=== PATIENT | female | born 1930 | race Caucasian/White ===

== ENCOUNTER 2016-05-25 16:35 | Emergency (ER) | payer MEDICARE, BC ==
[2016-05-25] MEDS ORDERED: LIDOCAINE HCL 20 ML VIAL ONE (19:08)
--- NOTE | 2016-05-25 20:09 | ERNOTE ---
Medical Problem HPI - Narrative Date of Service: 05/25/16 - General Chief Complaint: Laceration Time Seen by Provider: 05/25/16 17:39 Source: patient, family Exam Limitations: no limitations - Immun/Allergies/Home Medications Immunizations: IMMUNIZATION HX History of Influenza Vaccine Yes Allergies/Adverse Reactions: Allergies No Known Allergies Allergy (Verified 05/25/16 17:14) Home Medications: HOME MEDICATIONS Docusate Sodium [Colace] 300 mg PO DAILY 05/02/15 [Last Taken Unknown] Polyethylene Glycol 3350 [Miralax] 17 gm PO Q2D 05/02/15 [Last Taken Unknown] Sertraline HCl [Zoloft] 50 mg PO DAILY 05/02/15 [Last Taken Unknown] Simvastatin [Zocor] 40 mg PO HS 05/02/15 [Last Taken Unknown] traZODone HCL [Desyrel] 100 mg PO HS 05/02/15 [Last Taken Unknown] - History of Present History Narrative: 85 y/o female brought to the ED by her daughter for injuries due to a fall. She was leaving religious when she tripped and fell in the road. She struck her face on the ground. She attempted to catch herself and sustained several small wounds to both hands. She denies any symptoms prior to the fall. She has a laceration to her lower lip and bruising to her chin. She denies any loss of consciousness. Review of Systems - Review of Systems Constitutional: Absent: recent illness, fatigue, malaise EYE: Absent: eye pain, eye discharge, vision changes ENT: Absent: ear pain, ear discharge, nasal drainage, other - dental injury Respiratory: Absent: shortness of breath, cough Cardiology: Absent: chest pain, syncope Gastrointestinal/Abdominal: Absent: nausea, vomiting Genitourinary: Present: no symptoms reported Musculoskeletal: Absent: neck pain, joint pain, joint swelling Skin: Absent: lesions, lumps Neurological: Absent: headache, dizziness/light-headedness Endocrine: Present: no symptoms reported Hematologic/Lymphatic: Present: easy bruising, easy bleeding Psych: Present: no symptoms reported - Patient's Past Medical History Patient History - Medical: No pertinent hx Patient History - Cardiac/Respiratory: Hyperlipidemia Patient History - Cancer: No Hx of Cancer Patient History - Surgical Procedures: Appendectomy, Back Surgery, Cataracts, Colonoscopy, Hysterectomy, Other Patient History - Other: None - Social History Living Situations: home Abuse History: No History of abuse Psych History: No pertinent hx Alcohol Use: none Drug Use: none - Immunizations Immunizations Up to Date: Yes - Last tetanus approx 2 yrs ago History of Influenza Vaccine: Yes Physical Exam - Physical Exam General Appearance: Present: wd/wn, alert, no apparent distress Eye Exam: Normal inspection: bilateral, PERRL: bilateral, EOMI: bilateral Ears, Nose, Throat: Present: other - Dentures intact, laceration to inside of lower lip extending just beyond rupert border, small contusion on outer lip but does not appear to be a through and through lac, ecchymosis to chin. Absent : nasal congestion, sinus pain/drainage Neck: Present: normal inspection, nontender, supple, full range of motion Respiratory: Present: no respiratory distress, normal breath sounds, no accessory muscle use, chest nontender, lungs clear Cardiovascular/Chest: Present: regular rate, rhythm, no murmur, normal peripheral pulses Extremity Exam: Present: normal inspection, normal range of motion Neurological Exam: Present: alert, oriented, normal mood/affect, no motor/ sensory deficits Skin Exam: Present: warm/dry, other - several small abrasions to palms of hands , small avulsion laceration to tip of right ring finger ED Progress - Vital Signs Patient's Vital Signs:: I have reviewed the patient's vital signs. Vital Signs: Vital Signs 05/25/16 05/25/16 05/25/16 17:10 17:47 18:20 Temperature 36.3 C L Pulse Rate 68 73 70 Respiratory 12 16 18 Rate Blood Pressure 161/61 123/86 175/64 O2 Sat by Pulse 100 93 98 Oximetry - Progress/Reassessment Chief Complaint: Laceration Progress:: Improved Procedures Lower lip Anesthesia: 1% Lidocaine Length of Repair/Wound (cm): 3 Wound's Depth/Shape: into subcutaneous, irregular, contused tissue Wound Explored: clean, to base, in bloodless field, no foreign body Wound Intervention: irrigated w/saline Distal NVT: neuro/vasc intact Wound Repaired With: sutures Suture Size/Type: 6-0, nylon Number of Sutures: 3 Layer Closure: Simple Deep Layer Suture Size/Type: 4-0, dexon Number Deep Layer Sutures: 3 - inside of lip Complications: Pt cherie procedure well Right Distal Volar Finger 4th Digit Anesthesia: 1% Lidocaine Length of Repair/Wound (cm): 1 Wound's Depth/Shape: into subcutaneous Wound Explored: clean, to base, in bloodless field, no foreign body Wound Intervention: irrigated w/saline Distal NVT: neuro/vasc intact Wound Repaired With: sutures Suture Size/Type: 5-0, nylon Number of Sutures: 2 Layer Closure: Simple Wound Dressing: sterile dressing applied Complications: Pt cherie procedure well Departure - Departure Clinical Impression: Fall Qualifiers: Encounter type: initial encounter Qualified Code(s): W19.XXXA - Unspecified fall, initial encounter Lip laceration Qualifiers: Encounter type: initial encounter Qualified Code(s): S01.511A - Laceration without foreign body of lip, initial encounter Hand laceration Qualifiers: Encounter type: initial encounter Foreign body presence: without foreign body Laterality: right Qualified Code(s): S61.411A - Laceration without foreign body of right hand, initial encounter Disposition: Home Follow Up Needed Condition: Stable Instructions: Sutured Wound Care, [id number] Additional Instructions: Rinse mouth with warm salt water 2 or 3 times a day Soft foods, adequate fluid intake Moisten lips with vaseline as needed Have stitches removed from lip in 5 days Keep finger wound dry and dressing in place for 24 hours OK to then wash gently with soap and water - and apply antibiotic ointment and bandage as needed Do not soak wound for prolonged periods Have stitches removed from finger in 7 days Referrals: Bibiana Simon DO [Primary Care Provider] -
[2016-05-25 20:26] VITALS: BP 148/86
== END 2016-05-25 20:25 | disposition home or self-care (01) ==
LOC: ER 16:35
PROC: 0CQ1XZZ Repair Lower Lip, External Approach (ICD-10-PCS; principal; 2016-05-25)
PROC: 0JQJ0ZZ Repair Right Hand Subcutaneous Tissue and Fascia, Open Approach (ICD-10-PCS; 2016-05-25)
DX: S01.511A Laceration without foreign body of lip, initial encounter (principal); S61.411A Laceration without foreign body of right hand, initial encounter; W01.0XXA Fall on same level from slipping, tripping and stumbling without subsequent striking against object, initial encounter; Z91.81 History of falling; Y93.89 Activity, other specified; Y92.410 Unspecified street and highway as the place of occurrence of the external cause

== ENCOUNTER 2016-09-04 05:54 | Inpatient (IN) | payer MEDICARE, BC ==
[2016-09-04] MEDS ORDERED: ROPIVACAINE HCL/PF 100 MG, EPINEPHrine 0.2 MG, KETOROLAC TROMETHAMINE 30 MG in NORMAL S... IJ PRN (06:00)
[2016-09-04] MEDS ORDERED: MORPHINE SULFATE 15 MG TABLET.SA PO PRN (06:00)
[2016-09-04] MEDS ORDERED: ceFAZolin SODIUM 1 GM VIAL IV PRN (06:00)
[2016-09-04] MEDS ORDERED: RINGER'S SOLUTION,LACTATED 1,000 ML IV PRN (06:00)
[2016-09-04] MEDS ORDERED: TRANEXAMIC ACID 1,000 MG in NORMAL SALINE 100 ML IV PRN (06:00)
[2016-09-04] MEDS ORDERED: RINGER'S SOLUTION,LACTATED 1,000 ML IV ONE ×2 (07:30→08:10)
[2016-09-04] MEDS ORDERED: MORPHINE SULFATE 2 MG/ML DISP.SYRIN IV PRN (10:38)
[2016-09-04] MEDS ORDERED: ACETAMINOPHEN 500 MG TABLET PO PRN (10:38)
[2016-09-04] MEDS ORDERED: PROMETHAZINE HCL 5 MG in DEXTROSE 5 % IN WATER 50 ML IV PRN ×2 (10:38)
[2016-09-04] MEDS ORDERED: MAGNESIUM HYDROXIDE 30 ML UDC PO PRN (10:38)
[2016-09-04] MEDS ORDERED: MAG HYDROX/ALUMINUM HYD/SIMETH 30 ML UDC PO PRN (10:38)
[2016-09-04] MEDS ORDERED: ONDANSETRON HCL/PF 2 MG/ML VIAL IV PRN (10:38)
[2016-09-04] MEDS ORDERED: diphenhydrAMINE HCL 50 MG/ML VIAL IV PRN (10:38)
[2016-09-04] MEDS: oxyCODONE HCL/ACETAMINOPHEN 1 TAB TABLET PO PRN (11:39)
[2016-09-04] MEDS: NORMAL SALINE 1,000 ML IV PRN ×2 (12:00→21:58)
--- NOTE | 2016-09-04 13:30 | OR ---
Anesthesia Procedure Note - Anesthesia Procedure Note Date of Service: 09/04/16 Narrative: Vital Signs - Last Taken Temp 36.6 C 09/04/16 13:18 Pulse 60 09/04/16 13:18 Resp 17 09/04/16 13:18 BP 131/64 09/04/16 13:18 Pulse Ox 92 09/04/16 13:18 O2 Oxygen Delivery Method Room Air 09/04/16 13:24 ANESTHESIA PROCEDURE NOTE Date of Procedure: 09/04/2016. Time of procedure: 729. Performed by: Monty Bonilla CRNA Auto Electrical Technician: None. Preprocedure diagnosis: Left knee DJD, status post left total knee arthroplasty. Post procedure diagnosis: Same. Procedure: Left ultrasound guided femoral block for postop analgesia. Indications: The patient is a 85 -year-old female post left TKA. Findings: See below. Details of the procedure: The tissue over the intended target site was cleansed with ChloraPrep. Under sterile technique and ultrasound guidance a 21-gauge block needle was inserted to the left femoral nerve. 30 mL's of 0.5% bupivacaine plus epinephrine 1 200,000 was injected after negative aspiration for blood. Spread of local anesthetic around the femoral nerve was observed throughout the injection. The needle was removed intact. No complications were noted. The images were retained in the Hospital medical database . EBL: Minimal. Fluids: N/A. Specimen: N/A. Post procedure condition: The patient tolerated the procedure well. No complications were noted. Thank you for this consultation. Monty Bonilla CRNA
[2016-09-04] MEDS: ceFAZolin SODIUM 1 GM in DEXTROSE 5 % IN WATER 100 ML IV SCH ×4 (13:34→18:47)
--- NOTE | 2016-09-04 13:35 | OR ---
Operative Report - Dictated Report Narrative: Date: 09/04/2016 Preoperative diagnosis: Left Knee degenerative joint disease. Postoperative diagnosis: Left Knee degenerative joint disease. Procedure: Left Total knee arthroplasty. Surgeon: Brian Diaz M.D. Nuclear Technologist: Hosea Callejas PA-C, Bk Rankin PA-C Anesthesia: Spinal with regional block and local periarticular joint injection. Complications: None Specimens: Bone for disposal. Estimated blood loss: Minimal. Tourniquet time: 96 Minutes at 300 millimeters of mercury. Retained implants: Depuy Attune size 5 standard lugged cemented posterior stabilized femoral component. Size 4 fixed-bearing cemented tibial platform. 5 by 5 millimeter posterior stabilized cross-linked tibial insert. 32 millimeter medialized patella button. Synthes 4.5 mm cannulated screws x 2. Indications: Annalisa Is a 85-year-old female who presents for left total knee arthroplasty. This patient was followed in my clinic for period of time with significant complaints of left knee pain consistent with arthritic changes. They had failed conservative measures including but not limited to activity modification, passage of time, medications, and other conservative measures. Patient wished to proceed with surgical treatment. The risks, benefits, and alternatives were discussed in clinic. The risks of , blood clots, bleeding, infection, nerve/tendon blood vessel/ injury, malposition of components, intraoperative fracture, postoperative limited range of motion, persistent pain, failure of components, and need for additional procedures. Patient wished to proceed consent was obtained after answering all questions. Procedure: After marking the correct extremity on the floor, the patient was taken to the operating room. A timeout was performed. IV antibiotics consisting of 1 g of Ancef were administered prior to the procedure. A regional followed by spinal anesthetic was induced by anesthesia. on the operative table with all bony prominences well-padded. Reveles catheter was placed and a bump was placed under the operative side buttock. SCDs and HOSEA hose were utilized on the nonoperative leg. A well-padded tourniquet was applied to the operative thigh. The operative leg was then pre-scrubbed with alcohol prepped and draped in a standard sterile fashion. After exsanguinating the extremity with an Esmarch bandage, the tourniquet was inflated. After marking out the anterior knee for standard incision centered over the patella, the skin was incised and dissected down to the joint retinaculum. The joint retinaculum was marked out as well as the horizontal axis of the patella, and a standard medial parapatellar arthrotomy was then made. The most proximal aspect of the quadriceps tendon and the patella tendon insertion were protected from release. A partial synovectomy was performed as well as a resection of the infrapatellar fat pad. The distal femoral fat pad proximal to the trochlea was also resected using cautery. The soft tissues were elevated off the medial aspect of the proximal tibia using a Parks elevator ensuring that we did not transect the medial collateral ligament. Upon initial evaluation range of motion was approximately 0 degrees to 120 degrees of flexion. There were signs of advanced arthrosis in the medial and patellofemoral joint spaces. There were large marginal osteophytes which were removed with a rongeur. The knee was hyperflexed and the patella was tucked laterally. Protecting the surrounding soft tissues with Homans, an entry drill was placed down the femoral canal using Whitesides line for guidance into the entry point. The intramedullary femoral alignment cliff was utilized in order to cut the distal femur in 5 of valgus resecting 10 millimeters of bone. Next the distal femur was sized to a size 5. A posterior referencing guide was utilized to place the distal femoral cutting block in 3 of external rotation. This was pinned into place. The rotation was confirmed both visually and based on anatomic landmarks. The 4 in 1 cutting jig of the appropriate size was utilized in order to make all bony cuts. Retractors were utilized in order to protect surrounding soft tissues. This cut did not result in any excessive notching. We then cut the box centered over the distal femur. This allowed for resection of the anterior and posterior cruciate ligaments. I then turned my attention to the preparation of the tibia. Using an extra medullary tibial alignment cliff, 2 millimeters of bone was resected off the medial articular surface. This was made perpendicular to the mechanical axis of the joint with the alignment cliff centered over the ankle mortise. The alignment cliff was parallel to the mechanical axis, centered over the medial one third of the tibial tubercle, paralleling the anterior surface of the tibia. We then turned our attention to the remaining meniscus and soft tissues. These were removed while protecting the surrounding ligaments and soft tissues. The marginal osteophytes off the anterior, posterior, medial, lateral aspects of the femur and tibia were removed. The tibia was sized out to a size 4. Next the trial femur and size 4 tibial trial were placed and the knee. It was found that a 5 millimeter insert gave the best range of motion and stability at multiple flexion points as well as at full extension there was less than 2 mm of gapping both medially and laterally. There is minimal anterior translation with the knee at 90 of flexion and no signs of being able to dislocate the knee. The trial components were then removed and upon removing the femoral trial we noted a small nondisplaced fracture line extending up into the lateral femoral condyle. This was nondisplaced and upon probing the condyle noted to be incomplete with the condyle being fairly stable. We decided to place 2 lag screws across the fracture from lateral to medial using 4.5 mm partially threaded cannulated screws. This provided good compression across the nondisplaced fracture line. We did not feel that a stemmed femoral component was necessary at this point. Next the tibia was drilled and punched in an externally rotated position as confirmed with a drop cliff. The femoral and tibial insert trials were then placed back into the knee carefully impacting the femoral component back into place without any displacement of the fracture line. The patella was then prepared. The initial thickness was 24 millimeters. This was reamed down to 15 millimeters parallel to the anterior surface of the patella. It was sized out to a size 32 medialized patella button. This was then drilled and trialed. Without any medial restraint the patella tracked appropriately and did not sublux or dislocate. At this point, it was felt these were the appropriate sized implants and all trials were removed. The standard periarticular joint injection consisting of ropivacaine, Toradol, and epinephrine were injected into the periarticular joint tissues. The bony surfaces were thoroughly irrigated with a pulsatile- suction saline irrigation device. A bone plug from the prior resected anterior chamfer cut was placed into the drill hole at the distal femur. The bony surfaces were then dried in preparation for placement of the implants. The cement was vacuum mixed per the director customer's instructions. The cement was placed on the dry bony surfaces and posterior aspect of the implants. The implants were impacted into place, removing all extruded cement. The femoral component was carefully impacted and we noted no displacement at the fracture line. At this point anesthesia administered tranexamic acid per protocol intravenously. The knee was placed in extension with axial loading with the trial insert while the cement cured. A dilute 0.35% betadyne-saline solution was used to irrigate the knee and allowed to sit in the knee while the cement cured. Once the cement cured, all remaining extruded cement was removed. The knee was placed through a range of motion with the trial insert to ensure appropriate range of motion and stability. Final range of motion was approximately 0 to 130 degrees. The knee was again thoroughly irrigated with pulsatile saline lavage. The final polyethylene insert was then impacted into place ensuring no retained soft tissues. The remaining periarticular joint injection was injected. The knee was then packed with lap sponges which were soaked with dilute betadyne solution and the tourniquet was let down. Pressure was held for approximately 2 minutes and then hemostasis was obtained using electrocautery to coagulate any bleeding vessels. The knee was then placed over a triangle and the arthrotomy was closed with interrupted #1 Vicryl after thoroughly irrigating the joint. The deep and subcutaneous tissues were closed with interrupted 0 and 3-0 Vicryl respectively. Skin was closed with a running subcutaneous 3-0 Monocryl and sealed with a Prineo dressing. 4 x 4's, ABD, Sof- Rol, and a full leg Kevin wrap were applied. All sponge, needle, blade, and instrument counts were correct prior to closing the wounds. Postoperative condition: The patient was awoken and transferred to the postanesthesia care unit in stable condition. Plan is to be admitted to the inpatient medical/surgical floor postoperatively for 24 hours of IV antibiotics , physical therapy, occupational therapy, and medical co-management. Patient will be weightbearing as tolerated with range of motion as tolerated. DVT prophylaxis will be with SCDs, HOSEA hose, and pharmacological anticoagulation. Anticipated hospital stay is approximately 2-4 days.
[2016-09-04] MEDS: SENNOSIDES/DOCUSATE SODIUM 1 TAB TABLET PO SCH (20:24)
[2016-09-04] MEDS ORDERED: SENNOSIDES/DOCUSATE SODIUM 1 TAB TABLET PO PRN (21:18)
[2016-09-04] MEDS ORDERED: POLYETHYLENE GLYCOL 3350 119 GM BTL PO PRN (21:45)
[2016-09-04] MEDS: traZODone HCL 50 MG TABLET PO SCH (21:53)
[2016-09-04] MEDS: SERTRALINE HCL 50 MG TABLET PO SCH (21:54)
[2016-09-04] MEDS: LORATADINE 10 MG TABLET PO SCH (21:54)
[2016-09-04] MEDS: POLYVINYL ALCOHOL 150 DROP BTL EACHEYE SCH (21:54)
[2016-09-04] MEDS: SIMVASTATIN 40 MG TABLET PO SCH (21:54)
[2016-09-05] MEDS: ceFAZolin SODIUM 1 GM in DEXTROSE 5 % IN WATER 100 ML IV SCH ×2 (00:42)
[2016-09-05 05:57] LABS: Hematocrit 24.5 % (37.0-47.0); Mean Cell Volume 92.1 fl (78-100); Mean Corpuscular Hemoglobin 29.3 pg (27-31); Mean Corpuscular Hgb Conc 31.8 g/dl (32-36); Mean Platelet Volume 10.9 fl (6.0-9.5); Platelet Count 107 K/mm3 (150-450); Red Blood Count 2.66 M/mm3 (4.2-5.4); Red Cell Distribution Width 14.5 % (11.5-14.0); White Blood Count 7.5 K/mm3 (4.0-10.5)
[2016-09-05 06:09] LABS: Anion Gap 8.4 mmol/L (6.8-13.8); BUN/Creatinine Ratio 13.7 (9.0-21.6); Calcium * 7.7 mg/dL (7.9-10.9); Carbon Dioxide 30.7 mmol/L (24-32.6); Estimated Creat Clear 20.5; Potassium 4.1 mmol/L (3.4-4.6)
[2016-09-05 06:12] LABS: Hemoglobin 7.8 gm/dL (12.5-16.0)
[2016-09-05] MEDS ORDERED: OMEPRAZOLE 20 MG CAPSULE.SA PO SCH (06:30)
[2016-09-05] MEDS: oxyCODONE HCL/ACETAMINOPHEN 1 TAB TABLET PO PRN ×3 (06:38→17:12)
[2016-09-05] MEDS: PANTOPRAZOLE SODIUM 20 MG TABLET.DR PO SCH (06:38)
--- NOTE | 2016-09-05 08:04 | PN ---
Subjective - Date and Time Seen Date: 09/05/16 Subjective Narrative: No events overnight. Pain controlled. No complaints. Objective - Vitals Vitals: Last Vital Signs Temp 37.6 C H 09/05/16 07:25 Pulse 68 09/05/16 07:25 Resp 20 09/05/16 07:25 BP 113/64 09/05/16 07:25 Pulse Ox 100 09/05/16 07:25 - Abnormal Lab Findings Abnormal Lab Findings: Abnormal Lab Results 09/05/16 09/05/16 Range/Units 05:23 05:23 RBC 2.66 L (4.2-5.4) M/mm3 Hgb 7.8 L* D (12.5-16.0) gm/dL Hct 24.5 L (37.0-47.0) % MCHC 31.8 L (32-36) g/dl RDW 14.5 H (11.5-14.0) % Plt Count 107 L (150-450) K/mm3 MPV 10.9 H (6.0-9.5) fl Creatinine 1.53 H (0.4-1.4) mg/dL Est GFR (Non-Af Amer) 34 L (60-130) mL/min Random Glucose 126 H (70-110) mg/dL Calcium 7.7 L (7.9-10.9) mg/dL - Exam Exam Narrative: Gen: A&Ox4, NAD Resp: breathing non-labored, O2 sats 98 % on RA MSK: LLE--> dressings c/d/i, 5/5 EHL/FHL/DF/PF, SILT, cap refill brisk Cauti Physician Documentation - Urinary Catheter Management Urethral (Whitlock) Date of Insertion: 09/04/16 Time of Insertion: 07:45 Assessment/Plan Plan Narrative: 85 yo F s/p L total knee arthroplasty, POD #1. - WBAT - reg diet - oral pain meds - whitlock out - DVT ppx: lovenox, teds, SCDs - PT/OT - dispo: continue inpatient care, plan for d/c to SNF on Sat
[2016-09-05] MEDS: ASPIRIN 81 MG TABLET.DR PO SCH (08:31)
[2016-09-05] MEDS: FERROUS SULFATE 325 MG TABLET PO SCH (08:32)
[2016-09-05] MEDS: POLYVINYL ALCOHOL 150 DROP BTL EACHEYE SCH ×2 (08:32→20:07)
[2016-09-05] MEDS: BETA-CAROTENE(A) W-C , E/MIN 1 TAB TABLET PO SCH (08:32)
[2016-09-05] MEDS: CHOLECALCIFEROL 5,000 UNIT TABLET PO SCH (08:32)
[2016-09-05] MEDS: DOCUSATE SODIUM 100 MG CAPSULE PO SCH (08:32)
[2016-09-05] MEDS: ENOXAPARIN SODIUM 40 MG/0.4 ML SYRG SC SCH (08:40)
--- NOTE | 2016-09-05 09:57 | PN ---
Subjective - Date and Time Seen Date: 09/05/16 Time: 09:00 Subjective Narrative: Patient seen and examined at bedside this morning. No acute issues overnight. Reveles catheter removed this morning; patient has not urinated on her own since removal. Pain adequately controlled at this time. Objective - Review of Systems Generalized/Overall Review: Reports: No Symptoms Reported EENTM: Reports: No Symptoms Reported Respiratory: Reports: No Symptoms Reported Cardiac: Reports: No Symptoms Reported Abdominal: Reports: No Symptoms Reported Genitourinary Symptoms: Reports: No Symptoms Reported Musculoskeletal Complaints: Reports: Joint Pain - s/p left knee surgery Neurological: Reports: No Symptoms Reported Skin: Reports: No Symptoms Reported Endocrine: Reports: No Symptoms Reported Misc: All systems neg except as marked - Vitals Vitals: Last Vital Signs Temp 37.6 C H 09/05/16 07:25 Pulse 68 09/05/16 07:25 Resp 20 09/05/16 07:25 BP 113/64 09/05/16 07:25 Pulse Ox 100 09/05/16 07:25 - Abnormal Lab Findings Abnormal Lab Findings: Abnormal Lab Results 09/05/16 09/05/16 Range/Units 05:23 05:23 RBC 2.66 L (4.2-5.4) M/mm3 Hgb 7.8 L* D (12.5-16.0) gm/dL Hct 24.5 L (37.0-47.0) % MCHC 31.8 L (32-36) g/dl RDW 14.5 H (11.5-14.0) % Plt Count 107 L (150-450) K/mm3 MPV 10.9 H (6.0-9.5) fl Creatinine 1.53 H (0.4-1.4) mg/dL Est GFR (Non-Af Amer) 34 L (60-130) mL/min Random Glucose 126 H (70-110) mg/dL Calcium 7.7 L (7.9-10.9) mg/dL - Exam Constitutional: Present: Alert, Oriented x3, Cooperative, Well developed, Well nourished, No distress, Elderly, Looks Younger than stated age ENT Exam: Present: hearing grossly normal, moist mucous membranes Respiratory: Present: lungs clear, normal breath sounds, no respiratory distress , no accessory muscle use Cardiovascular/Chest: Present: regular rate, rhythm, edema - Trace edema in bilateral lower extremities Abdomen: Present: soft, nontender, nondistended, hypoactive Extremity: Present: other - s/p left TKA with dressings in place Skin Exam: Present: warm/dry, no cyanosis Neurologic: Present: no motor/sensory deficits, alert, normal mood/affect, oriented x 3 Appearance: Present: appropriate appearance, appropriate insight, neat, no memory impairment Eye contact: Present: cooperative, good eye contact, normal speech Thoughts: Present: normal thought pattern, no apparent hallucination Cauti Physician Documentation - Urinary Catheter Management Urethral (Reveles) Date of Insertion: 09/04/16 Time of Insertion: 07:45 Assessment/Plan Plan Narrative: IMPRESSION & PLAN: 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 Diaz -Post-op cares and pain control per ortho -IS ordered -PT/OT evaluation and treatment Post-Op Acute Blood Loss Anemia on Chronic Normocytic Anemia -Baseline hemoglobin around 10-11 -No signs of active bleeding -Recheck hemogram in AM -It is quite possible that the patient may need a blood transfusion during her hospital stay. I would recommend transfusing at least 1 unit if her hemoglobin falls below 7.0. -Patient started on ferrous sulfate 325 mg perioperatively and I would recommend continuing this for at least 2-3 months postop. Thrombocytopenia -Likely reactive and/or dilutional -Recheck hemogram in AM CHRONIC STABLE MEDICAL CONDITIONS: CKD Stage 3: Baseline creatinine around 1.5. Hyperlipidemia: Continue simvastatin. Depression: Continue sertraline. Osteopenia: Most recent DEXA scan was completed on 02/29/2016 and revealed minor osteopenia with a lumbar spine T score of -0.8 and a femoral neck T score of -1.6. Patient currently on a multivitamin and vitamin D supplementation. Patient refuses calcium supplementation secondary to fear worsening constipation. Patient receiving Prolia every 6 months. Allergic Rhinitis: Continue home medications. GERD: Continue home PPI. Insomnia: Continue home trazodone. Chronic Constipation: I would recommend continuing an aggressive bowel regimen, especially while the patient is in the hospital. GI prophylaxis: Continue home PPI VTE prophylaxis: Per order. Patient currently on Lovenox, SCDs and HOSEA hose. Code Status: DNR No ACLS, No Intubation - Problems/Diagnosis (1) Status post total left knee replacement Problem: Acute (2) Left knee DJD Problem: Chronic Qualifiers: Osteoarthritis type: primary Qualified Code(s): M17.12 - Unilateral primary osteoarthritis, left knee (3) Postoperative anemia due to acute blood loss Problem: Acute (4) Thrombocytopenia Problem: Acute (5) Chronic anemia Problem: Chronic (6) Chronic kidney disease, stage 3 Problem: Chronic (7) Hyperlipidemia Problem: Chronic (8) Depression Problem: Chronic (9) Osteopenia Problem: Chronic (10) Allergic rhinitis Problem: Chronic (11) GERD (gastroesophageal reflux disease) Problem: Chronic (12) Insomnia Problem: Chronic (13) Chronic constipation Problem: Chronic
[2016-09-05] MEDS: LORATADINE 10 MG TABLET PO SCH (20:05)
[2016-09-05] MEDS: traZODone HCL 50 MG TABLET PO SCH (20:05)
[2016-09-05] MEDS: SENNOSIDES/DOCUSATE SODIUM 1 TAB TABLET PO SCH (20:06)
[2016-09-05] MEDS: SIMVASTATIN 40 MG TABLET PO SCH (20:07)
[2016-09-05] MEDS: SERTRALINE HCL 50 MG TABLET PO SCH (20:08)
[2016-09-06] MEDS: oxyCODONE HCL/ACETAMINOPHEN 1 TAB TABLET PO PRN ×6 (00:23→20:17)
[2016-09-06 05:57] LABS: Mean Cell Volume 90.2 fl (78-100); Mean Corpuscular Hemoglobin 29.1 pg (27-31); Mean Corpuscular Hgb Conc 32.2 g/dl (32-36); Mean Platelet Volume 11.2 fl (6.0-9.5); Platelet Count 91 K/mm3 (150-450); Red Blood Count 2.65 M/mm3 (4.2-5.4); Red Cell Distribution Width 14.5 % (11.5-14.0); White Blood Count 7.2 K/mm3 (4.0-10.5)
[2016-09-06 06:07] LABS: Hematocrit 23.9 % (37.0-47.0); Hemoglobin 7.7 gm/dL (12.5-16.0)
[2016-09-06 06:12] LABS: Anion Gap 9.4 mmol/L (6.8-13.8); BUN/Creatinine Ratio 13.9 (9.0-21.6); Carbon Dioxide 29.1 mmol/L (24-32.6); Estimated Creat Clear 21.8; Potassium 3.5 mmol/L (3.4-4.6)
[2016-09-06] MEDS: PANTOPRAZOLE SODIUM 20 MG TABLET.DR PO SCH (06:52)
--- NOTE | 2016-09-06 07:40 | PN ---
Subjective - Date and Time Seen Date: 09/06/16 Subjective Narrative: No events overnight. Pain controlled this am. Reveles removed, has not yet urinated on her own. Objective - Vitals Vitals: Last Vital Signs Temp 37.5 C 09/06/16 07:00 Pulse 80 09/06/16 07:00 Resp 18 09/06/16 07:00 BP 108/48 09/06/16 07:00 Pulse Ox 96 09/06/16 07:00 - Abnormal Lab Findings Abnormal Lab Findings: Abnormal Lab Results 09/06/16 09/06/16 Range/Units 05:49 05:49 RBC 2.65 L (4.2-5.4) M/mm3 Hgb 7.7 L* (12.5-16.0) gm/dL Hct 23.9 L* (37.0-47.0) % RDW 14.5 H (11.5-14.0) % Plt Count 91 L (150-450) K/mm3 MPV 11.2 H (6.0-9.5) fl Creatinine 1.44 H (0.4-1.4) mg/dL Est GFR (Non-Af Amer) 37 L (60-130) mL/min Random Glucose 128 H (70-110) mg/dL - Exam Exam Narrative: 85 yo F s/p L total knee arthroplasty, POD #2. - WBAT - reg diet - oral pain meds - acute blood loss anemia - Hgb 7.7, stable from yesterday, continue to monitor closely - DVT ppx: angel, joels, SCDs - PT/OT - dispo: continue inpatient care, plan for d/c to SNF tomorrow Cauti Physician Documentation - Urinary Catheter Management Urethral (Reveles) Date of Insertion: 09/04/16 Time of Insertion: 07:45 Date of Removal: 09/05/16 Time of Removal: 07:00
[2016-09-06] MEDS: BETA-CAROTENE(A) W-C , E/MIN 1 TAB TABLET PO SCH (09:02)
[2016-09-06] MEDS: ASPIRIN 81 MG TABLET.DR PO SCH (09:03)
[2016-09-06] MEDS: FERROUS SULFATE 325 MG TABLET PO SCH (09:03)
[2016-09-06] MEDS: ENOXAPARIN SODIUM 40 MG/0.4 ML SYRG SC SCH (09:03)
[2016-09-06] MEDS: CHOLECALCIFEROL 5,000 UNIT TABLET PO SCH (09:03)
[2016-09-06] MEDS: DOCUSATE SODIUM 100 MG CAPSULE PO SCH (09:03)
[2016-09-06] MEDS: POLYVINYL ALCOHOL 150 DROP BTL EACHEYE SCH ×2 (09:11→20:13)
--- NOTE | 2016-09-06 11:28 | PN ---
Subjective - Date and Time Seen Date: 09/06/16 Time: 11:23 Subjective Narrative: Patient seen and examined at bedside this morning. No acute issues overnight. Pain adequately controlled at this time. Patient urinating on her own. Patient has had a least 1 BM since surgery. Objective - Review of Systems Generalized/Overall Review: Reports: No Symptoms Reported EENTM: Reports: No Symptoms Reported Respiratory: Reports: No Symptoms Reported Cardiac: Reports: No Symptoms Reported Abdominal: Reports: No Symptoms Reported Genitourinary Symptoms: Reports: No Symptoms Reported Musculoskeletal Complaints: Reports: Other - left knee pain Neurological: Reports: No Symptoms Reported Skin: Reports: No Symptoms Reported Endocrine: Reports: No Symptoms Reported Misc: All systems neg except as marked - Vitals Vitals: Last Vital Signs Temp 37.5 C 09/06/16 07:00 Pulse 80 09/06/16 07:00 Resp 18 09/06/16 07:00 BP 108/48 09/06/16 07:00 Pulse Ox 96 09/06/16 07:00 - Abnormal Lab Findings Abnormal Lab Findings: Abnormal Lab Results 09/06/16 09/06/16 Range/Units 05:49 05:49 RBC 2.65 L (4.2-5.4) M/mm3 Hgb 7.7 L* (12.5-16.0) gm/dL Hct 23.9 L* (37.0-47.0) % RDW 14.5 H (11.5-14.0) % Plt Count 91 L (150-450) K/mm3 MPV 11.2 H (6.0-9.5) fl Creatinine 1.44 H (0.4-1.4) mg/dL Est GFR (Non-Af Amer) 37 L (60-130) mL/min Random Glucose 128 H (70-110) mg/dL - Exam Constitutional: Present: Alert, Oriented x3, Cooperative, Well developed, Well nourished, No distress, Elderly, Looks Younger than stated age ENT Exam: Present: hearing grossly normal, moist mucous membranes Respiratory: Present: lungs clear, normal breath sounds, no respiratory distress , no accessory muscle use Cardiovascular/Chest: Present: regular rate, rhythm, edema - trace edema in bilateral LEs Abdomen: Present: soft, nontender, nondistended Extremity: Present: other - s/p left TKA Skin Exam: Present: warm/dry, no cyanosis Neurologic: Present: no motor/sensory deficits, alert, normal mood/affect, oriented x 3 Appearance: Present: appropriate appearance, appropriate insight, neat, no memory impairment Eye contact: Present: cooperative, good eye contact, normal speech Thoughts: Present: normal thought pattern, no apparent hallucination Cauti Physician Documentation - Urinary Catheter Management Urethral (Reveles) Date of Insertion: 09/04/16 Time of Insertion: 07:45 Date of Removal: 09/05/16 Time of Removal: 07:00 Assessment/Plan Plan Narrative: IMPRESSION & PLAN: 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 Diaz -Post-op cares and pain control per ortho -IS ordered -PT/OT evaluation and treatment Post-Op Acute Blood Loss Anemia on Chronic Normocytic Anemia -Baseline hemoglobin around 10-11 -No signs of active bleeding -Recheck hemogram in AM -It is quite possible that the patient may need a blood transfusion during her hospital stay. I would recommend transfusing at least 1 unit if her hemoglobin falls below 7.0. -Patient started on ferrous sulfate 325 mg perioperatively and I would recommend continuing this for at least 2-3 months postop. Thrombocytopenia -Likely reactive and/or dilutional -Recheck hemogram in AM CHRONIC STABLE MEDICAL CONDITIONS: CKD Stage 3: Baseline creatinine around 1.5. Hyperlipidemia: Continue simvastatin. Depression: Continue sertraline. Osteopenia: Most recent DEXA scan was completed on 02/29/2016 and revealed minor osteopenia with a lumbar spine T score of -0.8 and a femoral neck T score of -1.6. Patient currently on a multivitamin and vitamin D supplementation. Patient refuses calcium supplementation secondary to fear worsening constipation. Patient receiving Prolia every 6 months. Allergic Rhinitis: Continue home medications. GERD: Continue home PPI. Insomnia: Continue home trazodone. Chronic Constipation: I would recommend continuing an aggressive bowel regimen, especially while the patient is in the hospital. GI prophylaxis: Continue home PPI VTE prophylaxis: Per order. Patient currently on Lovenox, SCDs and HOSEA hose. Code Status: DNR No ACLS, No Intubation Disposition: Plan is to discharge to SNF tomorrow (09/07/2016). Patient is medically stable for discharge from my standpoint. - Problems/Diagnosis (1) Status post total left knee replacement Problem: Acute (2) Left knee DJD Problem: Chronic Qualifiers: Osteoarthritis type: primary Qualified Code(s): M17.12 - Unilateral primary osteoarthritis, left knee (3) Postoperative anemia due to acute blood loss Problem: Acute (4) Thrombocytopenia Problem: Acute (5) Chronic anemia Problem: Chronic (6) Chronic kidney disease, stage 3 Problem: Chronic (7) Hyperlipidemia Problem: Chronic (8) Depression Problem: Chronic (9) Osteopenia Problem: Chronic (10) Allergic rhinitis Problem: Chronic (11) GERD (gastroesophageal reflux disease) Problem: Chronic (12) Insomnia Problem: Chronic (13) Chronic constipation Problem: Chronic
[2016-09-06] MEDS: traZODone HCL 50 MG TABLET PO SCH (20:14)
[2016-09-06] MEDS: LORATADINE 10 MG TABLET PO SCH (20:14)
[2016-09-06] MEDS: SENNOSIDES/DOCUSATE SODIUM 1 TAB TABLET PO SCH (20:14)
[2016-09-06] MEDS: SIMVASTATIN 40 MG TABLET PO SCH (20:15)
[2016-09-06] MEDS: SERTRALINE HCL 50 MG TABLET PO SCH (20:15)
[2016-09-07] MEDS: oxyCODONE HCL/ACETAMINOPHEN 1 TAB TABLET PO PRN ×2 (01:22→06:46)
[2016-09-07] MEDS: PANTOPRAZOLE SODIUM 20 MG TABLET.DR PO SCH (06:45)
[2016-09-07 07:18] VITALS: BP 112/43
--- NOTE | 2016-09-07 08:43 | DS ---
Description of Stay: The patient was taken to the OR on 09/04/16 for L total knee arthroplasty. She tolerated the procedure well and was admitted to the inpatient unit postoperatively. Vitals and labs were followed and she remained stable. Pain was controlled with oral medications. She resumed a normal diet and normal bladder/bowel function. PT/OT was consulted and the patient made gains. She was deemed stable for discharge to a senior living facility on 09/07/16. Procedures Performed: see notes below List Procedures: L total knee arthroplasty - 09/04/16 Discharge Disposition: [facility] Disposition: [facility] Condition: Good Discharge Activity: Activity as tolerated Discharge Diet: General/regular food Discharge Level of Care:: SN[facility] Therapy: Physicial Therapy Referrals: Bibiana Simon DO [Primary Care Provider] - Additional Patient Instructions (free text): To [facility] at discharge for SNF. Orthopedic Discharge Instructions: 1. WBAT, ROM LLE 2. PT/OT for ROM, strengthening, and progressive mobility. 3. Regular diet 4. May shower. 5. Patient has Prineo dressing in place. This may be left uncovered. It needs to be inspected daily for any drainage or peeling up of the dressing prior to showering. If there is any drainage or peeling, it needs to be covered with 4x4s and tape and Dr. Diaz needs to be notified. 6. DVT ppx: lovenox for 7 more days followed by 6 weeks of 325 mg ASA daily. SCDs and joel hose. 7. Ice machine/SCD when in bed. 8. Follow up on 09/19/[address] clinic with Dr. Diaz ([phone]). Prescriptions (Any new or edited meds): Aspirin 325 mg PO DAILY #42 tablet Enoxaparin Sodium [Lovenox] 40 mg SC Q24H #7 disp.syrin oxyCODONE HCL/ACETAMINOPHEN [Percocet 5 MG/325 MG] 1 - 2 tab PO Q4H PRN #90 tablet PRN Reason: Moderate Pain Complete Home Medications List: Complete Home Medication List: Docusate Sodium [Colace] 300 mg PO DAILY 05/02/15 Polyethylene Glycol 3350 [Miralax] 17 gm PO Q2D PRN 05/02/15 Sertraline HCl [Zoloft] 50 mg PO HS 05/02/15 Simvastatin [Zocor] 40 mg PO HS 05/02/15 traZODone HCL [Desyrel] 100 mg PO HS 05/02/15 Cholecalciferol (Vitamin D3) [Vitamin D3] 5,000 unit PO DAILY 08/22/16 Dextran 70/Hypromellose [Artificial Tears Eye Drops] 1 drop OP BID 08/22/16 Fexofenadine HCl [Sandy Allergy] 180 mg PO HS 08/22/16 Multivit-Min/Iron/Folic/Lutein [Centrum Silver Women Tablet] 1 each PO DAILY 01/27 Omeprazole 20 mg PO DAILY@0630 08/22/16 Ferrous Sulfate [Iron] 325 mg PO DAILY 09/04/16 Sennosides/Docusate Sodium [Senna-S Tablet] 1 - 2 tab PO DAILY PRN 09/04/16 Aspirin 325 mg PO DAILY #42 tablet 09/07/16 Enoxaparin Sodium [Lovenox] 40 mg SC Q24H #7 disp.syrin 09/07/16 oxyCODONE HCL/ACETAMINOPHEN [Percocet 5 MG/325 MG] 1 - 2 tab PO Q4H PRN #90 tablet 09/07/16
[2016-09-07] MEDS: ENOXAPARIN SODIUM 40 MG/0.4 ML SYRG SC SCH (08:58)
[2016-09-07] MEDS: BETA-CAROTENE(A) W-C , E/MIN 1 TAB TABLET PO SCH (08:58)
[2016-09-07] MEDS: CHOLECALCIFEROL 5,000 UNIT TABLET PO SCH (08:58)
[2016-09-07] MEDS: FERROUS SULFATE 325 MG TABLET PO SCH (08:58)
[2016-09-07] MEDS: ASPIRIN 81 MG TABLET.DR PO SCH (08:58)
[2016-09-07] MEDS: DOCUSATE SODIUM 100 MG CAPSULE PO SCH (08:58)
[2016-09-07] MEDS: POLYVINYL ALCOHOL 150 DROP BTL EACHEYE SCH (09:00)
--- NOTE | 2016-09-07 09:53 | PN ---
Subjective - Date and Time Seen Date: 09/07/16 Time: 09:49 Subjective Narrative: Patient seen and examined at bedside this morning. No acute issues overnight. Pain adequately controlled at this time. Patient ready to go to [facility] for rehab/SNF. Objective - Review of Systems Generalized/Overall Review: Reports: No Symptoms Reported EENTM: Reports: No Symptoms Reported Respiratory: Reports: No Symptoms Reported Cardiac: Reports: No Symptoms Reported Abdominal: Reports: No Symptoms Reported Genitourinary Symptoms: Reports: No Symptoms Reported Musculoskeletal Complaints: Reports: Joint Pain - left knee pain Neurological: Reports: No Symptoms Reported Skin: Reports: No Symptoms Reported Endocrine: Reports: No Symptoms Reported Misc: All systems neg except as marked - Vitals Vitals: Last Vital Signs Temp 36.3 C L 09/07/16 07:15 Pulse 76 09/07/16 07:15 Resp 18 09/07/16 07:15 BP 112/43 09/07/16 07:15 Pulse Ox 96 09/07/16 07:15 - Exam Constitutional: Present: Alert, Oriented x3, Cooperative, Well developed, Well nourished, No distress, Elderly, Looks Younger than stated age ENT Exam: Present: hearing grossly normal, moist mucous membranes Respiratory: Present: lungs clear, normal breath sounds, no respiratory distress , no accessory muscle use Cardiovascular/Chest: Present: normal peripheral pulses, regular rate, rhythm, no edema Abdomen: Present: soft, nontender, nondistended Extremity: Present: other - s/p left TKA Skin Exam: Present: warm/dry, no cyanosis Neurologic: Present: no motor/sensory deficits, alert, normal mood/affect, oriented x 3 Appearance: Present: appropriate appearance, appropriate insight, neat, no memory impairment Eye contact: Present: cooperative, good eye contact, normal speech Thoughts: Present: normal thought pattern, no apparent hallucination Cauti Physician Documentation - Urinary Catheter Management Urethral (Reveles) Date of Insertion: 09/04/16 Time of Insertion: 07:45 Date of Removal: 09/05/16 Time of Removal: 07:00 Assessment/Plan Plan Narrative: IMPRESSION & PLAN: 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 Diaz -Post-op cares and pain control per ortho -IS ordered -PT/OT evaluation and treatment Post-Op Acute Blood Loss Anemia on Chronic Normocytic Anemia -Baseline hemoglobin around 10-11 -No signs of active bleeding -Recheck hemogram on 09/10/2016 -It is quite possible that the patient may need a blood transfusion during her hospital stay. I would recommend transfusing at least 1 unit if her hemoglobin falls below 7.0. -Patient started on ferrous sulfate 325 mg perioperatively and I would recommend continuing this for at least 2-3 months postop. Thrombocytopenia -Likely reactive and/or dilutional -Recheck hemogram on 09/10/2016 CHRONIC STABLE MEDICAL CONDITIONS: CKD Stage 3: Baseline creatinine around 1.5. Hyperlipidemia: Continue simvastatin. Depression: Continue sertraline. Osteopenia: Most recent DEXA scan was completed on 02/29/2016 and revealed minor osteopenia with a lumbar spine T score of -0.8 and a femoral neck T score of -1.6. Patient currently on a multivitamin and vitamin D supplementation. Patient refuses calcium supplementation secondary to fear worsening constipation. Patient receiving Prolia every 6 months. Allergic Rhinitis: Continue home medications. GERD: Continue home PPI. Insomnia: Continue home trazodone. Chronic Constipation: I would recommend continuing an aggressive bowel regimen, especially while the patient is in the hospital. GI prophylaxis: Continue home PPI VTE prophylaxis: Per order. Patient currently on Lovenox, SCDs and HOSEA hose. Code Status: DNR No ACLS, No Intubation Disposition: Plan is to discharge to SNF today (09/07/2016). Patient is medically stable for discharge from my standpoint. Recheck hemogram on 2016 and send results to my office for review. ] - Problems/Diagnosis (1) Status post total left knee replacement Problem: Acute (2) Left knee DJD Problem: Chronic Qualifiers: Osteoarthritis type: primary Qualified Code(s): M17.12 - Unilateral primary osteoarthritis, left knee (3) Postoperative anemia due to acute blood loss Problem: Acute (4) Thrombocytopenia Problem: Acute (5) Chronic anemia Problem: Chronic (6) Chronic kidney disease, stage 3 Problem: Chronic (7) Hyperlipidemia Problem: Chronic (8) Depression Problem: Chronic (9) Osteopenia Problem: Chronic (10) Allergic rhinitis Problem: Chronic (11) GERD (gastroesophageal reflux disease) Problem: Chronic (12) Insomnia Problem: Chronic (13) Chronic constipation Problem: Chronic
== END 2016-09-07 10:20 | DRG 470 ==
LOC: MS 05:54
PROVIDERS: ADMIT Orthopaedic Surgery; ATTEND Orthopaedic Surgery
PROC: 0SRD0J9 Replacement of Left Knee Joint with Synthetic Substitute, Cemented, Open Approach (ICD-10-PCS; principal; 2016-09-04 08:00)
DX: M17.12 Unilateral primary osteoarthritis, left knee (principal); D62 Acute posthemorrhagic anemia; D69.6 Thrombocytopenia, unspecified; N18.3 Chronic kidney disease, stage 3 (moderate); E78.5 Hyperlipidemia, unspecified; K21.9 Gastro-esophageal reflux disease without esophagitis